=== PATIENT | female | born 1970 | race Two or more races ===

== ENCOUNTER 2018-06-07 15:25 | Emergency (ER) | payer BC, OTHER ==
[~2018-06-07] VITALS: Ht 162.6 cm; Wt 60.0 kg
[2018-06-07] MEDS ORDERED: AMLO2.5T45 PO (15:47)
[2018-06-07] MEDS ORDERED: IBUPROFEN 600MG TABLET PO STA (18:07)
[2018-06-07 18:47] LABS: BASOPHILS % 0.5 % (0.0-2.0); EOSINOPHILS % 2.7 % (0.0-5.0); HEMATOCRIT. 41.9 % (36.0-48.0); LYMPHOCYTES % 25.6 % (20.0-50.0); MEAN CORPUSCULAR HEMOGLOBIN 28.1 pg (28.0-32.0); MEAN CORPUSCULAR VOLUME 84.3 fL (81.0-99.0); MEAN PLATELET VOLUME 8.4 fl (7.4-10.4); MONOCYTES % 8.4 % (2.0-8.0); NEUTROPHILS % 62.8 % (40.0-76.0); PLATELET 266 x1000/uL (130-400); RED BLOOD CELL COUNT 4.97 mill/uL (4.2-5.4); RED CELL DISTRIBUTION WIDTH 14.6 % (11.6-14.6)
[2018-06-07 18:49] LABS: CHLORIDE 106 mEq/L (98-107)
[2018-06-07 18:56] LABS: HCG SCREEN NEGATIVE
[2018-06-07] MEDS ORDERED: POTASSIUM CHLORIDE 20MEQ TABLET SR PO ONE (19:15)
[2018-06-07 20:00] VITALS: BP 168/96
== END 2018-06-07 20:05 | disposition home or self-care (01) ==
LOC: ER 15:25
DX: R07.89 Other chest pain (principal); M54.2 Cervicalgia; I10 Essential (primary) hypertension; V89.2XXA Person injured in unspecified motor-vehicle accident, traffic, initial encounter; Y93.89 Activity, other specified; Y92.89 Other specified places as the place of occurrence of the external cause; Y99.8 Other external cause status
CPT/HCPCS: 36415; 71045; 80053; 81025; 84484; 84703; 85025; 93005; 99285